=== PATIENT | male | born 1970 | race Caucasian/White ===

== ENCOUNTER 2020-03-22 11:34 | Emergency (ER) | payer OTHER ==
[~2020-03-22] VITALS: Ht 170.2 cm; Wt 86.2 kg
[2020-03-22] MEDS ORDERED: KETO10TA2 PO (13:00)
[2020-03-22] MEDS ORDERED: NORFLEX100MG PO (13:00)
== END 2020-03-22 13:38 | disposition home or self-care (01) ==
LOC: ER 11:34
DX: M25.512 Pain in left shoulder (principal); M54.2 Cervicalgia